=== PATIENT | female | born 1960 | race Caucasian/White ===

== ENCOUNTER 2018-09-28 10:08 | Emergency (ER) | payer OTHER ==
[2018-09-28 10:13] VITALS: PULSE 69; TEMP 97.9; BMI 37.2
[2018-09-28] MEDS ORDERED: ACETAMINOPHEN 325 MG TABLET (FP) PO ONE (10:31)
--- NOTE | 2018-09-28 10:32 | PDOC ---
History of Present Illness - General Chief Complaint: Back Pain Stated Complaint: BACK PAIN Time Seen by Provider: 09/28/18 10:15 History Source: Patient Exam Limitations: No Limitations - History of Present Illness Initial Comments: 09/28/18 10:36 58y F hx of NIDDM persents with L flank/back pain. 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 The pain is mildly improved by seeing the chiropractor, however she notes that at some point she started having moderate L flank pain that improved after a tretment with her chiropractor, then a few days later she twisted again and the pain came back. The pain has been intermittent since then. It resolved eysterday and then came back today when she woke up. pain is worse with sitting and moving/twisting in general, improvd with rest she has no other injuries. n oassociated fver/chills, numbnes/tingling/weakness, saddle anesthisa, difficulty uriating or with boel movement. no cp, sob, abd pain, n/v deneis any urinary symptmos, hematuria pt took a naproxen this AM with minimal improvement. Past History - Past Medical History Allergies/Adverse Reactions: Allergies Allergy/AdvReac Type Severity Reaction Status Date / Time No Known Allergies Allergy Verified 09/28/18 10:09 Home Medications: Ambulatory Orders Cyclobenzaprine HCl [Flexeril 10 mg] 10 mg PO BID PRN #10 tablet 09/28/18 Metformin HCl [Glucophage] 500 mg PO BID 09/28/18 COPD: No Diabetes: Yes Other medical history: DISC HERNIATION LUMBAR - Suicide/Smoking/Psychosocial Hx Smoking History: Never smoked Have you smoked in the past 12 months: No Information on smoking cessation initiated: No Hx Alcohol Use: No Review of Systems - Review of Systems Able to Perform ROS?: Yes Comments:: 09/28/18 10:39 Constitutional - no reported Fever, Chills, Respiratory: no reported sob, Cardiac: no reported chest pain, light headedness, leg swelling Abd/GI: no reported abd pain, nausea, vomiting, : no reported dysuria, frequency, discharge Musculskelatal - +left flank pain no reported joint swelling skin - no reported bruising, erythema, rash neurological: no reported headache, numbness, focal weakness, tingling, *Physical Exam - Vital Signs Last Vital Signs Temp Pulse Resp BP Pulse Ox 97.9 F 69 18 173/100 H 100 09/28/18 10:08 09/28/18 10:08 09/28/18 10:08 09/28/18 10:08 09/28/18 10:08 - Physical Exam Comments: 09/28/18 10:40 GENERAL: The patient is awake, alert, and fully oriented, Nontoxic - in no acute distress. HEAD: Normocephalic, atraumatic. LUNGS: Breath sounds equal, clear to auscultation bilaterally. No wheezes, no rhonchi, no rales. HEART: Regular rate and rhythm, normal S1 and S2 without murmur, rub or gallop. ABDOMEN: Soft, nontender, No guarding, no rebound. . No CVA tenderness EXTREMITIES: Normal range of motion, no edema. No clubbing or cyanosis. No cords, erythema, or tenderness. MSK: Moderate L flank pain (posterior axillary line along ribs 7-9 on left), no focal midline tenderness along cervica/thoracic/lumbar spine, no paraspinal tenderness NEUROLOGICAL: No facial assymetry, Normal speech, movin gall 4 extremities spontaneously and symmetrically PSYCH: Normal mood, normal affect. SKIN: Warm, Dry, normal turgor, No rashes to torso Moderate Sedation - Procedure Monitoring Vital Signs: Procedure Monitoring Vital Signs Temperature 97.9 F 09/28/18 10:08 Pulse Rate 69 09/28/18 10:08 Respiratory Rate 18 09/28/18 10:08 Blood Pressure 173/100 H 09/28/18 10:08 O2 Sat by Pulse Oximetry (%) 100 09/28/18 10:08 ED Treatment Course - RADIOLOGY Radiology Studies Ordered: Category Date Time Status RIBS-LEFT SIDE [RAD] Stat Radiology 09/28/18 10:31 Ordered Medical Decision Making - Medical Decision Making 09/28/18 10:42 suspect msk pain, possible strain with overuse/compensation to her other back injury will give tylenol, muscle relaxants will obtain xray to r/o fx 09/28/18 11:21 cxr negative for fx will dc with supportive care return percautions were dsicussed I discussed the physical exam findings, ancillary test results and final diagnoses with the patient. I answered all of the patient's questions. The patient was satisfied with the care received and felt comfortable with the discharge plan and treatment plan. The patient will call their primary care physician within 24 hours to arrange follow-up and will return to the Emergency Department with any new, persistent or worsening symptoms. *DC/Admit/Observation/Transfer Diagnosis at time of Disposition: Rib pain on left side - Discharge Dispostion Disposition: HOME Condition at time of disposition: Stable Decision to Admit order: No - Prescriptions Prescriptions: Cyclobenzaprine HCl [Flexeril 10 mg] 10 mg PO BID PRN #10 tablet PRN Reason: Back Pain - Referrals Referrals: Dk Montiel [Primary Care Provider] - - Patient Instructions Printed Discharge Instructions: DI for Muscle Strain Additional Instructions: Return to the emergency department immediately with ANY new, persistent or worsening symptoms. Take ibuprofen or Tylenol as needed for your pain. You MUST call and follow up with your doctor in 3-4 days for further evaluation of your symptoms. Results were discussed with you. Please make sure your doctor reviews the results of your emergency evaluation. Print Language: ERITREAN - Post Discharge Activity
[2018-09-28] MEDS ORDERED: ACETAMINOPHEN 325 MG TABLET (FP) ONE (10:35)
[2018-09-28 11:30] VITALS: BP 158/77
== END 2018-09-28 11:35 | disposition home or self-care (01) ==
LOC: FER 10:08
DX: R07.81 Pleurodynia (principal); E11.9 Type 2 diabetes mellitus without complications
CPT/HCPCS: 71101-TC-LT-FY; 99283-25